=== PATIENT | female | born 1950 | race African-American/Black ===

== ENCOUNTER → 2017-01-18 | Outpatient (CLI) | payer OTHER ==
[2017-01-18] VITALS (14 sets, daily range): BP systolic 111–140; BP diastolic 61–71
[~2017-01-18] VITALS: Ht 160 cm; Wt 90.7 kg
[~2017-01-18] MED LIST: ALPR0.5T6 PO; CYCL10TA2 PO; DULA0.75 SUBCUT; FENTANYL PF 250 MCG/5 ML VIAL. IV ONE; FENTANYL PF 250 MCG/5 ML VIAL. ONE; HEPARIN for IV BOLUS 10,000 UNIT/10 ML VIAL. IART ONE; HEPARIN for IV BOLUS 10,000 UNIT/10 ML VIAL. ONE; HYDR-971 PO; IOHEXOL 300 MG/ML 100ML VIAL. IART ONE; IOHEXOL 300 MG/ML 100ML VIAL. ONE; IV 1/2 NORMAL SALINE 1,000 ML IV SCH; IV NORMAL SALINE 1000ML BAG 1,000 ML IV SCH; LEVO500T38 PO; LIDOCAINE 2% 20 ML VIAL. IJ ONE; LIDOCAINE 2% 20 ML VIAL. ONE; LISI1TAB7 PO; METF500T4 PO; MIDAZOLAM HCL/PF 5 MG/5 ML VIAL. IV ONE; MIDAZOLAM HCL/PF 5 MG/5 ML VIAL. ONE; MIRA25TA PO; NITROGLYCERIN 200 MCG/2 ML SYRINGE FOR CATH/VASC LAB. IART ONE; NITROGLYCERIN 200 MCG/2 ML SYRINGE FOR CATH/VASC LAB. ONE; OMEP20CA9 PO; OXYC1TAB8 PO; SIMV40TA3 PO; VERAPAMIL 5 MG/2 ML VIAL. IART ONE; VERAPAMIL 5 MG/2 ML VIAL. ONE
[2017-01-18 09:33] LABS: HEMATOCRIT 37.2 % (36.0-47.0); HEMOGLOBIN 12.7 g/dL (12.0-15.5); RED BLOOD COUNT 4.58 x10^6/uL (3.50-5.40); RED CELL DISTRIBUTION WIDTH 14.5 % (11.5-14.5); WHITE BLOOD COUNT 4.8 x10^3/uL (4.0-11.0)
[2017-01-18 09:43] LABS: PROTHROMBIN TIME PATIENT 12.7 SEC (11.7-14.0)
[2017-01-18 09:50] LABS: CREATININE 0.8 mg/dL (0.6-1.0); GFR 86.8; POTASSIUM 3.8 mmol/L (3.5-5.1)
--- NOTE | 2017-01-18 12:16 | PDOC ---
MODERATE SEDATION ASSESSMENT RISKS/ALTERNATIVES Risks/Alternatives Risks and alternatives of this type of sedation and procedure discussed with: RISK/ALTERNATIVES: Patient H & P ON CHART H & P H & P on chart and reviewed for co-morbid conditions and appropriate labs. H&P ON CHART: Yes STATUS PREG STATUS ASSESSED: N/A MEDS/ALLERGIES REVIEWED Meds/Allergies Reviewed Medications and Allergies including time and route of recently administered narcotics and sedatives. MEDS/ALLERGIES REVIEWED: Yes ASA RATING ASA RATING: II AIRWAY ASSESSMENT Airway Assessment Airway patency, oral function limitations, presence of caps, crowns, dentures, partials, and ability to extend neck assessed. AIRWAY ASSESSMENT: Yes MALLAMPATI SCORE MALLAMPATI SCORE: II PRE-SEDATION ASSESSMENT PRE-SEDATION ASSESSMENT: Yes BRIANNA TORRES MD Jan 18, 2017 12:16
--- NOTE | 2017-01-18 12:21 | CARD ---
APPROVED REPORT Procedure(s) performed: Left heart catheterization, selective coronary angiography and left ventricul ography via right transradial approach INDICATION The indication(s) include : unstable angina . PROCEDURE NARRATIVE After explaining the risks, benefits and alternative options, informed consent was obtained from edmund ent. Patient was brought to the cardiac Roller Inspector and right wrist was prepped and draped in the usual fashion after confirming a positive modified Javid's test. Arterial access was obtained in the rig t radial artery and a 6 Malawian sheath was inserted. 6 Malawian Steve catheter was used to perform sal ective angiography of the left and right coronary arteries. The same catheter was also used to perfor m left ventriculography. Patient tolerated the procedure well. Hemostasis was achieved using TR ban d. There were no immediate complications. The following findings were noted. FINDINGS 1. Hemodynamics: Left ventricular end-diastolic pressure of 4 mmHg. No pullback gradient across the aortic valve. 2. Left ventriculography: Normal left ventricle systolic function with ejection fraction estimated at 60%. No significant mitral regurgitation seen. 3. Coronary angiography: a. The left main coronary artery arose from the left sinus of Valsalva, gave rise to the left anteri or descending and left circumflex arteries and did not show any significant stenosis. b. The left anterior descending artery did not show any significant stenosis. c. The left circumflex artery was a large and dominant vessel that not show any significant stenosis . d. The right coronary artery was a small and nondominant vessel arising from the right sinus of Vals patton that did not show any significant stenosis. Conclusion 1. No significant coronary artery disease 2. Normal left ventricle systolic function with ejection fraction estimated at 60%. Recommendations Cardiac Risk Reduction Program
== END | disposition home or self-care (01) ==
LOC: CCL 09:00
PROVIDERS: ATTEND Internal Medicine Cardiovascular Disease
DX: I20.0 Unstable angina (principal); I10 Essential (primary) hypertension; K21.9 Gastro-esophageal reflux disease without esophagitis; E11.9 Type 2 diabetes mellitus without complications; F41.9 Anxiety disorder, unspecified; F32.9 Major depressive disorder, single episode, unspecified; Z90.710 Acquired absence of both cervix and uterus; Z96.651 Presence of right artificial knee joint
CPT/HCPCS: 36415; 80048; 85027; 85610; 93458; C1769; C1892; J2250; J3010; J3490; Q9967

== ENCOUNTER 2019-04-12 03:20 | Emergency (ER) | payer BC, OTHER, MEDICARE ==
[~2019-04-12 03:20] MED LIST changes: -FENTANYL PF 250 MCG/5 ML VIAL. IV ONE; -FENTANYL PF 250 MCG/5 ML VIAL. ONE; -HEPARIN for IV BOLUS 10,000 UNIT/10 ML VIAL. IART ONE; -HEPARIN for IV BOLUS 10,000 UNIT/10 ML VIAL. ONE; +HYDR-3164 PO; -HYDR-971 PO; -IOHEXOL 300 MG/ML 100ML VIAL. IART ONE; -IOHEXOL 300 MG/ML 100ML VIAL. ONE; -IV 1/2 NORMAL SALINE 1,000 ML IV SCH; -IV NORMAL SALINE 1000ML BAG 1,000 ML IV SCH; -LEVO500T38 PO; +LEVO500T59 PO; -LIDOCAINE 2% 20 ML VIAL. IJ ONE; -LIDOCAINE 2% 20 ML VIAL. ONE; +METF500T16 PO; -METF500T4 PO; -MIDAZOLAM HCL/PF 5 MG/5 ML VIAL. IV ONE; -MIDAZOLAM HCL/PF 5 MG/5 ML VIAL. ONE; -NITROGLYCERIN 200 MCG/2 ML SYRINGE FOR CATH/VASC LAB. IART ONE; -NITROGLYCERIN 200 MCG/2 ML SYRINGE FOR CATH/VASC LAB. ONE; +OMEP20CA10 PO; -OMEP20CA9 PO; -VERAPAMIL 5 MG/2 ML VIAL. IART ONE; -VERAPAMIL 5 MG/2 ML VIAL. ONE
[2019-04-12] MEDS ORDERED: METOCLOPRAMIDE HCL 10 MG/2 ML VIAL. ONE (04:12)
[2019-04-12] MEDS ORDERED: KETOROLAC 15 MG/ML VIAL. ONE (04:12)
--- NOTE | 2019-04-12 06:17 | PHYS DOC ---
Past Medical History Past Medical History: Anxiety, Diabetes-Type II, GERD, High Cholesterol, Hypertension, Other Additional Past Medical Histor: CHRONIC PAIN (KIM HEALY DO) Past Surgical History: Knee Replacement, Other Additional Past Surgical Histo: R ROTATOR CUFF, BILATERAL CARPAL TUNNEL (KIM HEALY DO) Alcohol Use: None Drug Use: None (KIM HEALY DO) Adult General Chief Complaint Chief Complaint: ABDOMINAL PAIN HPI HPI Patient is a 68-year-old female who presents with right flank pain. The pain has been going on for 6 months but is progressively worse in the past 2 weeks. Tonight at 1900 she woke up from sleep with severe right-sided flank pain. The pain as sharp and starts in her back and radiates around to her side and into her lower abdomen. She reports chills, nausea, vomiting, diarrhea, and decreased appetite. She denies hematuria, urgency, burning with urination. She's been having loose stools with no blood in her stool. (KIM HEALY DO) Review of Systems Review of Systems Constitutional: Reports fever and chills Eyes: Denies redness or eye pain HENT: Denies nasal congestion, reports sore throat Respiratory: Denies cough or shortness of breath Cardiovascular: Denies chest pain or palpitations GI: Reports abdominal pain, nausea, and vomiting : Denies dysuria or hematuria Musculoskeletal: Reports back pain, denies joint pain Integument: Denies rash or skin lesions Neurologic: Reports headache, denies focal weakness or sensory changes Complete systems were reviewed and found to be within normal limits, except as documented in this note. (KIM HEALY DO) Current Medications Current Medications Current Medications Medications (Trade) Dose Ordered Sig/Darrell Start Time Stop Time Status Last Admin Dose Admin Ceftriaxone Sodium (Rocephin) 1 gm 1X ONCE 04/12/19 07:45 04/12/19 07:46 Ketorolac Tromethamine (Toradol 15mg Vial) 15 mg STK-MED ONCE 04/12/19 04:12 04/12/19 04:13 DC Magnesium Sulfate 50 ml @ 25 mls/hr 1X ONCE 04/12/19 07:30 04/12/19 09:29 04/12/19 07:30 25 MLS/HR Metoclopramide HCl (Reglan Vial) 10 mg STK-MED ONCE 04/12/19 04:12 04/12/19 04:13 DC Morphine Sulfate (Morphine Sulfate) 4 mg 1X ONCE 04/12/19 07:45 04/12/19 07:46 UNV Sodium Chloride 1,000 ml @ 1,000 mls/hr 1X ONCE 04/12/19 07:30 04/12/19 08:29 04/12/19 07:30 1,000 MLS/HR (LIZETTE CHURCHILL DO) Allergies Allergies Allergies Coded Allergies Type Severity Reaction Last Updated Verified Penicillins Allergy Intermediate 09/07/16 Yes codeine Adverse Reaction Unknown Nausea 04/12/19 Yes (LIZETTE CHURCHILL DO) Physical Exam Physical Exam Constitutional: Well developed, well nourished, distressed due to pain, non- toxic appearance HENT: Normocephalic, atraumatic, oropharynx moist Eyes: PERRL, conjunctiva normal, no discharge Neck: Normal range of motion, no tenderness, supple Cardiovascular: Heart rate normal, regular rhythm Lungs & Thorax: Bilateral breath sounds clear to auscultation, no wheezing Abdomen: Soft, tenderness to palpation in lower abdomen, no peritoneal signs Skin: Warm, dry, no erythema, no rash Back: No tenderness, right CVA tenderness Extremities: No tenderness, ROM intact, no edema Neurologic: Alert and oriented X 3, normal motor function, normal sensory function, no focal deficits noted Psychologic: Affect normal, judgement normal, mood normal (KIM HEALY DO) Current Patient Data Vital Signs Vital Signs Date Time Temp Pulse Resp B/P (MAP) Pulse Ox O2 Delivery O2 Flow Rate FiO2 04/12/19 06:00 100 18 97 Room Air (LIZETTE CHURCHILL DO) Lab Values Laboratory Tests Test 04/12/19 04:32 04/12/19 06:05 Urine Collection Type U cath Urine Color Yellow Urine Clarity Clear Urine pH 7.0 Urine Specific [place] 1.025 Urine Protein Negative mg/dL (NEG-TRACE) Urine Glucose (UA) Negative mg/dL (NEG) Urine Ketones (Stick) Negative mg/dL (NEG) Urine Blood Negative (NEG) Urine Nitrite Positive (NEG) Urine Bilirubin Negative (NEG) Urine Urobilinogen Dipstick 1.0 mg/dL (0.2 mg/dL) Urine Leukocyte Esterase Trace (NEG) Urine RBC 0 /HPF (0-2) Urine WBC 1-4 /HPF (0-4) Urine Bacteria Many /HPF (0-FEW) White Blood Count 5.6 x10^3/uL (4.0-11.0) Red Blood Count 3.88 x10^6/uL (3.50-5.40) Hemoglobin 11.2 g/dL (12.0-15.5) L Hematocrit 32.9 % (36.0-47.0) L Mean Corpuscular Volume 85 fL (79-100) Mean Corpuscular Hemoglobin 29 pg (25-35) Mean Corpuscular Hemoglobin Concent 34 g/dL (31-37) Red Cell Distribution Width 13.5 % (11.5-14.5) Platelet Count 172 x10^3/uL (140-400) Neutrophils (%) (Auto) 71 % (31-73) Lymphocytes (%) (Auto) 21 % (24-48) L Monocytes (%) (Auto) 7 % (0-9) Eosinophils (%) (Auto) 1 % (0-3) Basophils (%) (Auto) 1 % (0-3) Neutrophils # (Auto) 4.0 x10^3/uL (1.8-7.7) Lymphocytes # (Auto) 1.2 x10^3/uL (1.0-4.8) Monocytes # (Auto) 0.4 x10^3/uL (0.0-1.1) Eosinophils # (Auto) 0.0 x10^3/uL (0.0-0.7) Basophils # (Auto) 0.0 x10^3/uL (0.0-0.2) Sodium Level 139 mmol/L (136-145) Potassium Level 3.7 mmol/L (3.5-5.1) Chloride Level 103 mmol/L (98-107) Carbon Dioxide Level 25 mmol/L (21-32) Anion Gap 11 (6-14) Blood Urea Nitrogen 28 mg/dL (7-20) H Creatinine 1.1 mg/dL (0.6-1.0) H Estimated GFR (Cockcroft-Gault) 59.8 BUN/Creatinine Ratio 25 (6-20) H Glucose Level 94 mg/dL (70-99) Lactic Acid Level 2.5 mmol/L (0.4-2.0) H Calcium Level 9.9 mg/dL (8.5-10.1) Magnesium Level 1.2 mg/dL (1.8-2.4) L Total Bilirubin 0.7 mg/dL (0.2-1.0) Aspartate Amino Transferase (AST) 19 U/L (15-37) Alanine Aminotransferase (ALT) 23 U/L (14-59) Alkaline Phosphatase 51 U/L (46-116) Total Protein 6.6 g/dL (6.4-8.2) Albumin 3.3 g/dL (3.4-5.0) L Albumin/Globulin Ratio 1.0 (1.0-1.7) Laboratory Tests 04/12/19 06:05 Laboratory Tests 04/12/19 06:05 (LIZETTE CHURCHILL DO) Lab Values Laboratory Tests Test 04/12/19 04:32 Urine Collection Type U cath Urine Color Yellow Urine Clarity Clear Urine pH 7.0 Urine Specific [place] 1.025 Urine Protein Negative mg/dL (NEG-TRACE) Urine Glucose (UA) Negative mg/dL (NEG) Urine Ketones (Stick) Negative mg/dL (NEG) Urine Blood Negative (NEG) Urine Nitrite Positive (NEG) Urine Bilirubin Negative (NEG) Urine Urobilinogen Dipstick 1.0 mg/dL (0.2 mg/dL) Urine Leukocyte Esterase Trace (NEG) Urine RBC 0 /HPF (0-2) Urine WBC 1-4 /HPF (0-4) Urine Bacteria Many /HPF (0-FEW) (KIM HEALY DO) EKG EKG [] (KIM HEALY DO) Radiology/Procedures Radiology/Procedures [] (KIM HEALY DO) Radiology/Procedures [facility] [address] [place] [address] IMAGING REPORT Signed PATIENT: JAMIR KEANE ACCOUNT: [id number] : 1950 LOCATION: ER AGE: 68 SEX: F EXAM STATUS: REG ER ORD. PHYSICIAN: KIM HEALY DO REASON: Abdominal/R flank pain PROCEDURE: CT ABDOMEN PELVIS WO CONTRAST CT scan of the abdomen and pelvis without contrast 04/12/2019 CLINICAL HISTORY: Right flank pain. TECHNIQUE: Unenhanced, contiguous, 2 mm axial sections were obtained through the abdomen and pelvis. One or more of the following individualized dose reduction techniques were utilized for this study: 1. Automated exposure control. 2. Adjustment of the mA and/or kV according to patient size. 3. Use of iterative reconstruction technique. FINDINGS: Images through the lung bases demonstrate linear bands of subsegmental atelectasis involving both lower lobes. A 1.4 cm rounded low-attenuation lesion is seen involving the right lobe of the liver. There is surrounding calcifications. This may represent a hemangioma. The spleen, pancreas, adrenal glands and kidneys are within normal limits. Atherosclerotic calcification abdominal aorta is seen. The abdominal aorta tapers normally. The gallbladder is distended. No free fluid or free air is seen within the abdomen. Air and stool is seen throughout the colon. There is no evidence of bowel obstruction. The appendix is well-visualized and is within normal limits. Images through the pelvis demonstrate the urinary bladder distended with urine. No distal ureteral calculus is seen. No free fluid is noted. Very mild S-shaped curvature of the thoracolumbar spine is noted. IMPRESSION: No acute abnormality is seen. Electronically signed by: Leonardo Price MD (04/12/2019 6:46 AM) [facility] DICTATED and SIGNED BY: LEONARDO PRICE MD DATE: 04/12/19 0646 (LIZETTE CHURCHILL DO) Course & Med Decision Making Course & Med Decision Making Patient is a 69-year-old female who presents with right flank pain. Has been going on for 6 months. It is progressively worse in the past 2 weeks. She'll felt the middle of the night with severe right-sided flank pain that radiates around the side into her lower abdomen. She rates the pain as a 10/10. Reports nausea, vomiting, diarrhea, and decreased appetite. Denies hematuria, urgency, burning with urination. Labs and CT abdomen were obtained and are currently pending. Pain addressed. Discussed current findings and plan with patient and family, who acknowledge understanding and agreement. Sign out given to Dr. Churchill for further evaluation and final disposition. (KIM HEALY DO) Dragon Disclaimer Dragon Disclaimer This electronic medical record was generated, in whole or in part, using a voice recognition dictation system. (KIM HEALY DO) Departure Departure Impression: Primary Impression: Flank pain Additional Impression: UTI (urinary tract infection) Disposition: HOME, SELF-CARE Condition: STABLE Referrals: NO PCP (PCP) FOLLOW UP WITH YOUR DOCTOR NEEDED Patient Instructions: Abdominal Pain, Urinary Tract Infection Scripts Tramadol Hcl (TRAMADOL HCL) 50 Mg Tablet 50 MG PO Q6HRS PRN for PAIN, #15 TAB Prov: LIZETTE CHURCHILL DO 04/12/19 Nitrofurantoin Monohyd/M-Cryst (MACROBID 100 MG CAPSULE) 100 Mg Capsule 1 CAP PO BID, #20 CAP Prov: LIZETTE CHURCHILL DO 04/12/19 Problem Qualifiers KIM HEALY DO Apr 12, 2019 06:17 LIZETTE CHURCHILL DO Apr 12, 2019 07:47
[2019-04-12 06:21] LABS: BASO % 1 % (0-3); EOS % 1 % (0-3); HEMATOCRIT 32.9 % (36.0-47.0); HEMOGLOBIN 11.2 g/dL (12.0-15.5); LYMPH # 1.2 x10^3/uL (1.0-4.8); LYMPH % 21 % (24-48); MEAN CORPUSCULAR HEMOGLOBIN 29 pg (25-35); MEAN CORPUSCULAR HGB CONC 34 g/dL (31-37); MEAN CORPUSCULAR VOLUME 85 fL (79-100); MONO # 0.4 x10^3/uL (0.0-1.1); MONO % 7 % (0-9); NEUT % 71 % (31-73); PLATELET COUNT 172 x10^3/uL (140-400); RED BLOOD COUNT 3.88 x10^6/uL (3.50-5.40); RED CELL DISTRIBUTION WIDTH 13.5 % (11.5-14.5); WHITE BLOOD COUNT 5.6 x10^3/uL (4.0-11.0)
[2019-04-12 06:24] LABS: BILIRUBIN,URINE NEGATIVE (NEG); CLARITY,URINE CLEAR; COLOR,URINE YELLOW; NITRITE,URINE POSITIVE (NEG); PROTEIN,URINE NEGATIVE (NEG-TRACE)
[2019-04-12 06:35] LABS: BACTERIA,URINE MANY /HPF (0-FEW); RBC,URINE 0 /HPF (0-2)
[2019-04-12 06:36] LABS: ALBUMIN 3.3 g/dL (3.4-5.0); CALCIUM 9.9 mg/dL (8.5-10.1); CREATININE 1.1 mg/dL (0.6-1.0); GFR 59.8; MAGNESIUM 1.2 mg/dL (1.8-2.4); POTASSIUM 3.7 mmol/L (3.5-5.1); TOTAL BILIRUBIN 0.7 mg/dL (0.2-1.0); TOTAL PROTEIN 6.6 g/dL (6.4-8.2)
--- NOTE | 2019-04-12 06:49 | RAD ---
CT scan of the abdomen and pelvis without contrast 04/12/2019 CLINICAL HISTORY: Right flank pain. TECHNIQUE: Unenhanced, contiguous, 2 mm axial sections were obtained through the abdomen and pelvis. One or more of the following individualized dose reduction techniques were utilized for this study: 1. Automated exposure control. 2. Adjustment of the mA and/or kV according to patient size. 3. Use of iterative reconstruction technique. FINDINGS: Images through the lung bases demonstrate linear bands of subsegmental atelectasis involving both lower lobes. A 1.4 cm rounded low-attenuation lesion is seen involving the right lobe of the liver. There is surrounding calcifications. This may represent a hemangioma. The spleen, pancreas, adrenal glands and kidneys are within normal limits. Atherosclerotic calcification abdominal aorta is seen. The abdominal aorta tapers normally. The gallbladder is distended. No free fluid or free air is seen within the abdomen. Air and stool is seen throughout the colon. There is no evidence of bowel obstruction. The appendix is well-visualized and is within normal limits. Images through the pelvis demonstrate the urinary bladder distended with urine. No distal ureteral calculus is seen. No free fluid is noted. Very mild S-shaped curvature of the thoracolumbar spine is noted. IMPRESSION: No acute abnormality is seen. Electronically signed by: Leonardo Price MD (04/12/2019 6:46 AM) [facility]
[2019-04-12] MEDS: IV NORMAL SALINE 1000ML BAG 1,000 ML IV ONE (07:30)
[2019-04-12] MEDS: MAGNESIUM SULFATE 2GM 50 ML IV ONE (07:30)
[2019-04-12] MEDS: cefTRIAXone IV Push 1 GM VIAL. IVP ONE (07:45)
[2019-04-12] MEDS ORDERED: TRAM50TA PO (07:47)
[2019-04-12] MEDS ORDERED: NITR100C62 PO (07:47)
[2019-04-12] MEDS: MORPHINE SULFATE 4 MG/ML VIAL. IV ONE (07:54)
[2019-04-12 08:00] VITALS: BP 101/49
== END 2019-04-12 09:10 | disposition home or self-care (01) ==
LOC: ER 03:20
DX: N39.0 Urinary tract infection, site not specified (principal); R11.2 Nausea with vomiting, unspecified; R19.7 Diarrhea, unspecified; R51 Headache; R50.9 Fever, unspecified; M54.9 Dorsalgia, unspecified; F41.9 Anxiety disorder, unspecified; E11.9 Type 2 diabetes mellitus without complications; K21.9 Gastro-esophageal reflux disease without esophagitis; E78.00 Pure hypercholesterolemia, unspecified; I10 Essential (primary) hypertension; G89.29 Other chronic pain; Z96.659 Presence of unspecified artificial knee joint; Z88.0 Allergy status to penicillin; Z88.5 Allergy status to narcotic agent
CPT/HCPCS: 36415; 74176; 80053; 81001; 83605; 83735; 85025; 87086; 96365; 96366; 96375; 99285; J0696; J2270; J3475; J7030

== ENCOUNTER → 2019-09-15 | Day surgery (SDC) | payer BC, OTHER, MEDICARE ==
[~2019-09-15] MED LIST changes: +IV RINGERS,LACTATED 1000ML 1,000 ML IV ONE; +LIDOCAINE 2% PF 5 ML VIAL. ONE; +LISI1TAB20 PO; -LISI1TAB7 PO; +NITR100C62 PO; +OMEP-229 PO; -OMEP20CA10 PO; +PROPOFOL 40 ML IV ONE; +SEMA1PEN SQ; +SIMV40TA18 PO; -SIMV40TA3 PO; +TRAM50TA PO
[2019-09-15 08:08] VITALS: BP 124/58
== END ==
LOC: ENDOS 06:14
PROVIDERS: ATTEND Internal Medicine Gastroenterology
DX: K59.00 Constipation, unspecified (principal); K64.0 First degree hemorrhoids; K29.50 Unspecified chronic gastritis without bleeding; E11.9 Type 2 diabetes mellitus without complications; E78.00 Pure hypercholesterolemia, unspecified; F41.9 Anxiety disorder, unspecified; F15.90 Other stimulant use, unspecified, uncomplicated; Z86.010 Personal history of colon polyps; Z98.890 Other specified postprocedural states; Z88.5 Allergy status to narcotic agent; Z88.0 Allergy status to penicillin; Z91.040 Latex allergy status; Z87.01 Personal history of pneumonia (recurrent); K21.0 Gastro-esophageal reflux disease with esophagitis; Z87.891 Personal history of nicotine dependence; Z72.89 Other problems related to lifestyle; Z79.84 Long term (current) use of oral hypoglycemic drugs; Z90.710 Acquired absence of both cervix and uterus; Z98.42 Cataract extraction status, left eye; Z98.41 Cataract extraction status, right eye; Z96.1 Presence of intraocular lens
CPT/HCPCS: 43235; 45378; J2001; J2704

== ENCOUNTER 2021-02-07 17:40 | Emergency (ER) | payer BC, OTHER, MEDICARE ==
[~2021-02-07] VITALS: Ht 157.5 cm; Wt 68.0 kg
[~2021-02-07 17:40] MED LIST changes: -IV RINGERS,LACTATED 1000ML 1,000 ML IV ONE; -LIDOCAINE 2% PF 5 ML VIAL. ONE; -OMEP-229 PO; +OMEP20CA16 PO; -PROPOFOL 40 ML IV ONE
[2021-02-07] MEDS ORDERED: fentaNYL PF VIAL 100 MCG/2 ML VIAL IVP ONE (19:30)
[2021-02-07] MEDS ORDERED: ASPIRIN CHEWABLE 81 MG TABLET. PO ONE (19:30)
[2021-02-07 19:37] LABS: BASO % 0 % (0-3); EOS # 0.1 x10^3/uL (0.0-0.7); EOS % 2 % (0-3); HEMOGLOBIN 12.5 g/dL (12.0-15.5); LYMPH # 2.3 x10^3/uL (1.0-4.8); LYMPH % 37 % (24-48); MEAN CORPUSCULAR HEMOGLOBIN 29 pg (25-35); MEAN CORPUSCULAR HGB CONC 34 g/dL (31-37); MEAN CORPUSCULAR VOLUME 87 fL (79-100); MONO # 0.5 x10^3/uL (0.0-1.1); MONO % 7 % (0-9); NEUT # 3.3 x10^3/uL (1.8-7.7); NEUT % 54 % (31-73); PLATELET COUNT 227 x10^3/uL (140-400); RED BLOOD COUNT 4.27 x10^6/uL (3.50-5.40); RED CELL DISTRIBUTION WIDTH 13.9 % (11.5-14.5); WHITE BLOOD COUNT 6.1 x10^3/uL (4.0-11.0)
[2021-02-07 19:37] LABS: BILIRUBIN,URINE NEGATIVE (NEG); CLARITY,URINE CLEAR; COLOR,URINE YELLOW; NITRITE,URINE POSITIVE (NEG); PROTEIN,URINE NEGATIVE (NEG-TRACE)
--- NOTE | 2021-02-07 19:52 | RAD ---
EXAM: Chest, 2 views. HISTORY: Chest pain. COMPARISON: None. FINDINGS: 2 views of the chest are obtained. There is left basilar atelectasis or scarring. There is no infiltrate, pleural effusion or pneumothorax. The heart is normal in size. There is cervical spina l fusion instrumentation. IMPRESSION: No acute pulmonary finding. Electronically signed by: Kika Powell MD (02/07/2021 7:50 PM) [facility]
[2021-02-07 19:53] LABS: AMORPHOUS SEDIMENT,UR PRESENT /HPF; WBC,URINE 20-40 /HPF (0-4)
[2021-02-07 19:54] LABS: BACTERIA,URINE MANY /HPF (0-FEW); RBC,URINE 0 /HPF (0-2)
--- NOTE | 2021-02-07 20:02 | ED.ADGEN ---
Past Medical History Past Medical History: Anxiety, Diabetes-Type II, GERD, High Cholesterol, Hypertension, Other Additional Past Medical Histor: CHRONIC PAIN Past Surgical History: Knee Replacement, Other Additional Past Surgical Histo: R ROTATOR CUFF, BILATERAL CARPAL TUNNEL Smoking Status: Former Smoker Alcohol Use: None Drug Use: None General Adult EDM: Chief Complaint: CHEST PAIN HPI: HPI: Patient is a 70 year old female coming in for intermittent chest pain for the past month to month and a half. Patient states the pain is on the left side of her chest and radiates down her arm. Says it is achy. Says she occasionally has "hot flashes". Where she feels flushed and then chilled. Has occasional nonproductive cough. Is unable to lay flat to sleep. Denies any cardiac history but has a history of diabetes. Says the pain comes and goes throughout the day and is not necessarily associated with exertion. Review of Systems: Review of Systems: All other systems within normal limits except for as noted in the HPI Current Medications: Current Medications Medications (Trade) Dose Ordered Sig/Darrell Start Time Stop Time Status Last Admin Dose Admin Aspirin (Aspirin Chewable) 324 mg 1X ONCE 02/07/21 19:30 02/07/21 19:31 DC 02/07/21 19:49 324 MG Fentanyl Citrate (Fentanyl 2ml Vial) 75 mcg 1X ONCE 02/07/21 19:30 02/07/21 19:31 DC 02/07/21 19:49 75 MCG Nitrofurantoin Macrocrystals (Macrobid) 100 mg 1X ONCE 02/07/21 21:30 02/07/21 21:31 DC 02/07/21 22:17 100 MG Sodium Chloride 1,000 ml @ 1,000 mls/hr 1X ONCE 02/07/21 21:00 02/07/21 21:59 DC 02/07/21 20:59 1,000 MLS/HR Allergies: Allergies: Allergies Coded Allergies Type Severity Reaction Last Updated Verified Penicillins Allergy Intermediate 09/11/19 Yes codeine Adverse Reaction Mild Nausea 02/07/21 Yes Physical Exam: PE: Constitutional: Well developed, well nourished, no acute distress, non-toxic appearance. [] HENT: Normocephalic, atraumatic, bilateral external ears normal, nose normal. [] Eyes: PERRLA, conjunctiva normal, no discharge. [] Neck: No rigidity, supple, no stridor. [] Cardiovascular: Regular rate and rhythm, brisk cap refill, symmetric radial pulses, no murmurs or rubs [] Lungs & Thorax: Non labored symmetric respirations, no tachypnea or respiratory distress but sounds clear to all station [] Abdomen: Soft, nondistended. Skin: Warm, dry, no erythema, no rash. [] Back: Unremarkable Extremities: No deformities, range of motion grossly intact, no lower extremity edema [] Neurologic: Alert and oriented X 3, no focal deficits noted. [] Psychologic: Affect normal, judgement normal, mood normal. [] Current Patient Data: Labs: Laboratory Tests Test 02/07/21 17:50 02/07/21 19:15 02/07/21 20:05 White Blood Count 6.1 x10^3/uL (4.0-11.0) Red Blood Count 4.27 x10^6/uL (3.50-5.40) Hemoglobin 12.5 g/dL (12.0-15.5) Hematocrit 37.0 % (36.0-47.0) Mean Corpuscular Volume 87 fL (79-100) Mean Corpuscular Hemoglobin 29 pg (25-35) Mean Corpuscular Hemoglobin Concent 34 g/dL (31-37) Red Cell Distribution Width 13.9 % (11.5-14.5) Platelet Count 227 x10^3/uL (140-400) Neutrophils (%) (Auto) 54 % (31-73) Lymphocytes (%) (Auto) 37 % (24-48) Monocytes (%) (Auto) 7 % (0-9) Eosinophils (%) (Auto) 2 % (0-3) Basophils (%) (Auto) 0 % (0-3) Neutrophils # (Auto) 3.3 x10^3/uL (1.8-7.7) Lymphocytes # (Auto) 2.3 x10^3/uL (1.0-4.8) Monocytes # (Auto) 0.5 x10^3/uL (0.0-1.1) Eosinophils # (Auto) 0.1 x10^3/uL (0.0-0.7) Basophils # (Auto) 0.0 x10^3/uL (0.0-0.2) D-Dimer (Divya) 0.42 ug/mlFEU (0.00-0.50) Urine Collection Type Unknown Urine Color Yellow Urine Clarity Clear Urine pH 7.0 (<5.0-8.0) Urine Specific [place] 1.020 (1.000-1.030) Urine Protein Negative mg/dL (NEG-TRACE) Urine Glucose (UA) Negative mg/dL (NEG) Urine Ketones (Stick) Negative mg/dL (NEG) Urine Blood Negative (NEG) Urine Nitrite Positive (NEG) Urine Bilirubin Negative (NEG) Urine Urobilinogen Dipstick 1.0 mg/dL (0.2 mg/dL) Urine Leukocyte Esterase Moderate (NEG) Urine RBC 0 /HPF (0-2) Urine WBC 20-40 /HPF (0-4) Urine Squamous Epithelial Cells Few /LPF Urine Amorphous Sediment Present /HPF Urine Bacteria Many /HPF (0-FEW) Urine Mucus Slight /LPF Sodium Level 144 mmol/L (136-145) Potassium Level 3.8 mmol/L (3.5-5.1) Chloride Level 108 mmol/L (98-107) H Carbon Dioxide Level 27 mmol/L (21-32) Anion Gap 9 (6-14) Blood Urea Nitrogen 24 mg/dL (7-20) H Creatinine 0.9 mg/dL (0.6-1.0) Estimated GFR (Cockcroft-Gault) 74.9 BUN/Creatinine Ratio 27 (6-20) H Glucose Level 76 mg/dL (70-99) Calcium Level 9.4 mg/dL (8.5-10.1) Magnesium Level 1.9 mg/dL (1.8-2.4) Total Bilirubin 0.4 mg/dL (0.2-1.0) Aspartate Amino Transferase (AST) 19 U/L (15-37) Alanine Aminotransferase (ALT) 28 U/L (14-59) Alkaline Phosphatase 47 U/L (46-116) Troponin I Quantitative < 0.017 ng/mL (0.000-0.055) C-Reactive Protein, Quantitative 1.5 mg/L (0-3.3) XG-Glg-N-Type Natriuretic Peptide 15 pg/mL (0-124) Total Protein 6.2 g/dL (6.4-8.2) L Albumin 3.2 g/dL (3.4-5.0) L Albumin/Globulin Ratio 1.1 (1.0-1.7) Lipase 75 U/L (73-393) Laboratory Tests 02/07/21 17:50 Laboratory Tests 02/07/21 20:05 Vital Signs: Vital Signs Date Time Temp Pulse Resp B/P (MAP) Pulse Ox O2 Delivery O2 Flow Rate FiO2 02/07/21 19:49 20 99 Room Air 02/07/21 18:01 98.4 94 119/64 (82) 98.4 EKG: EKG: Heart rate 84 bpm, left axis deviation, no ST elevation or depression nonspecific T wave changes. [] Heart Score: C/O Chest Pain: Yes HEART Score for Chest Pain: HEART Score for Chest Pain Response (Comments) Value History Moderately Suspicious 1 ECG Normal 0 Age > 65 2 Risk Factors 1 or 2 Risk Factors 1 Troponin < Normal Limit 0 Total 4 Risk Factors: Risk Factors: DM, Current or recent (<one month) smoker, HTN, HLP, family history of CAD, obesity. Risk Scores: Score 0 - 3: 2.5% MACE over next 6 weeks - Discharge Home Score 4 - 6: 20.3% MACE over next 6 weeks - Admit for Clinical Observation Score 7 - 10: 72.7% MACE over next 6 weeks - Early Invasive Strategies Radiology/Procedures: Radiology/Procedures: EXAM: Chest, 2 views. HISTORY: Chest pain. COMPARISON: None. FINDINGS: 2 views of the chest are obtained. There is left basilar atelectasis or scarring. There is no infiltrate, pleural effusion or pneumothorax. The heart is normal in size. There is cervical spinal fusion instrumentation. IMPRESSION: No acute pulmonary finding.[] Course & Med Decision Making: Course & Med Decision Making Pertinent Labs and Imaging studies reviewed. (See chart for details) Cardiac work-up negative. Patient urine tract infection high BUN to creatinine ratio. Given fluids. Troponin negative after greater than 4 hours since chest pain. Advised patient to follow-up with primary care for stress test as an outpatient. No indication that observation hospital stay would benefit patient. [] Dragon Disclaimer: Dragon Disclaimer: This electronic medical record was generated, in whole or in part, using a voice recognition dictation system. Departure Departure Impression: Primary Impression: Chest pain Additional Impression: UTI (urinary tract infection) Disposition: HOME / SELF CARE / HOMELESS Condition: STABLE Referrals: SUN CONNELLY MD (PCP) Patient Instructions: Chest Pain (Nonspecific) Additional Instructions: Follow for primary care provider for possible outpatient stress test. Scripts Naproxen (EC-Naproxen) 500 Mg Tablet.dr 500 MG PO PRN Q12HR PRN for PAIN for 10 Days, #20 TAB.SR Prov: ELY GARCIA MD 02/07/21 Ciprofloxacin Hcl (CIPRO) 500 Mg Tablet 1 TAB PO BID for antibiotic for 7 Days, #14 TAB 0 Refills Prov: ELY GARCIA MD 02/07/21 Problem Qualifiers ELY GARCIA MD February 07, 2021 20:02
--- NOTE | 2021-02-07 20:18 | EKG ---
[facility] [address] [place] [address] Test Date: 2021-02-07 Test Time: 17:48:48 Pat Name: JAMIR KEANE Department: Room: Gender: F School Administrator: : 1950 Requested By: ELY GARCIA Order Number: [id number] Reading MD: Measurements Intervals [place] Rate: 94 P: 29 UT: 134 QRS: 6 QRSD: 86 T: 26 QT: 362 QTc: 458 Interpretive Statements SINUS RHYTHM VENTRICULAR PREMATURE COMPLEX(ES) ABNORMAL ECG RI6.02 No previous ECG available for comparison
[2021-02-07 20:22] LABS: CALCIUM 9.4 mg/dL (8.5-10.1); CREATININE 0.9 mg/dL (0.6-1.0); GFR 74.9; POTASSIUM 3.8 mmol/L (3.5-5.1)
[2021-02-07 20:28] LABS: ALBUMIN 3.2 g/dL (3.4-5.0); ALBUMIN/GLOBULIN RATIO 1.1 (1.0-1.7); C-REACTIVE PROTEIN 1.5 mg/L (0-3.3); MAGNESIUM 1.9 mg/dL (1.8-2.4); TOTAL BILIRUBIN 0.4 mg/dL (0.2-1.0); TOTAL PROTEIN 6.2 g/dL (6.4-8.2)
[2021-02-07] MEDS ORDERED: IV NORMAL SALINE 1000ML BAG 1,000 ML IV ONE (21:00)
[2021-02-07] MEDS ORDERED: NITROFURANTOIN MONOHYD/M-CRYST 100 MG CAPSULE. PO ONE (21:30)
[2021-02-07] MEDS ORDERED: CIPR500T94 PO (21:45)
[2021-02-07] MEDS ORDERED: [UNRECOGNIZED DRUG - CODE] PO (21:45)
[2021-02-07 22:16] VITALS: BP 87/51
== END 2021-02-07 23:00 | disposition home or self-care (01) ==
LOC: ER 17:40
DX: N39.0 Urinary tract infection, site not specified (principal); R07.89 Other chest pain; E11.9 Type 2 diabetes mellitus without complications; K21.9 Gastro-esophageal reflux disease without esophagitis; E78.00 Pure hypercholesterolemia, unspecified; I10 Essential (primary) hypertension; G89.29 Other chronic pain; Z87.891 Personal history of nicotine dependence; Z88.0 Allergy status to penicillin; Z88.5 Allergy status to narcotic agent
CPT/HCPCS: 36415; 71046; 80053; 81001; 83690; 83735; 83880; 84484; 85025; 85379; 86140; 87077; 87086; 87186; 93005; 96361; 96374; 99285; J3010; J7030

== ENCOUNTER 2021-10-06 21:54 | Emergency (ER) | payer BC, OTHER, MEDICARE ==
[~2021-10-06 21:54] MED LIST changes: +CIPR500T94 PO; +CYCL10TA19 PO; -CYCL10TA2 PO; -LISI1TAB20 PO; +LISI1TAB39 PO; +[UNRECOGNIZED DRUG - CODE] PO
== END 2021-10-07 04:24 | disposition left against medical advice (07) ==
LOC: ER 21:54
DX: R09.89 Other specified symptoms and signs involving the circulatory and respiratory systems (principal); Z53.21 Procedure and treatment not carried out due to patient leaving prior to being seen by health care provider